=== PATIENT | female | born 1940 | race Caucasian/White ===

== ENCOUNTER 2021-12-16 20:56 | Inpatient (IN) | payer MEDICARE, MEDICAID ==
[~2021-12-16] VITALS: Ht 162.6 cm; Wt 74.8 kg
[2021-12-16] MEDS ORDERED: ALBUTEROL (0.083%) 2.5MG/3ML NEB HHN STA (22:13)
[2021-12-16 23:15] LABS: BG BASE EXCESS -1.7 mmol/L (-2.0-2.0); BG CARBOXYHEMOGLOBIN 0.9 % (0.5-1.5); BG DEOXYHEMOGLOBIN 1.6 % (0.0-5.0); BG FRACTION INSPIRED OXYGEN 28; BG HCO3 ACT 22.5 mmol/L (22.0-26.0); BG METHEMOGLOBIN 0.5 % (0.0-1.5); BG OXYGEN SATURATION 98.4 % (92.0-98.5); BG PCO2 36.5 mmHg (35.0-45.0); BG PH 7.407 (7.350-7.450); BG PO2 102.6 mmHg (75.0-100.0); BG SAMPLE SITE RIGHT RADIAL; BG TOTAL HEMOGLOBIN 14.4 g/dL (12.0-18.0); BG VENT MODE NASAL CANNULA
[2021-12-16 23:46] LABS: HEMATOCRIT. 29.9 % (36.0-48.0); HEMOGLOBIN. 10.3 g/dL (12.0-16.0); MEAN CORPUSCULAR HEMOGLOBIN 30.9 pg (28.0-32.0); MEAN CORPUSCULAR VOLUME 89.8 fL (81.0-99.0); MEAN PLATELET VOLUME 7.5 fl (7.4-10.4); PLATELET 223 x1000/uL (130-400); RED BLOOD CELL COUNT 3.33 mill/uL (4.2-5.4); RED CELL DISTRIBUTION WIDTH 13.6 % (11.6-14.6)
[2021-12-17 00:16] LABS: CHLORIDE 86 mEq/L (98-107); ETHANOL BLOOD < 10 mg/dL
[2021-12-17 00:38] LABS: *AMPHETAMINES SCREEN URINE NEGATIVE (NEGATIVE); *BARBITURATES SCREEN URINE NEGATIVE (NEGATIVE); *BENZODIAZEPINES SCREEN URINE NEGATIVE (NEGATIVE); *COCAINE SCREEN URINE NEGATIVE (NEGATIVE); CANNABINOID URINE SCREEN NEGATIVE (NEGATIVE); METHADONE URINE SCREEN NEGATIVE (NEGATIVE); OPIATES URINE SCREEN NEGATIVE (NEGATIVE); PHENCYCLIDINE URINE SCREEN NEGATIVE (NEGATIVE)
[2021-12-17] MEDS ORDERED: SODIUM CHLORIDE 0.9% 500 ML IV NR (00:45)
[2021-12-17 01:15] LABS: PLATELET ESTIMATE NORMAL
[2021-12-17] MEDS ORDERED: ACETAMINOPHEN 325MG TABLET PO PRN ×2 (09:45)
[2021-12-17] MEDS ORDERED: DOCUSATE SODIUM 100MG CAPSULE PO PRN (09:45)
[2021-12-17] MEDS ORDERED: DEXTROSE 50% WATER 50ML SYRINGE IV PRN (09:45)
[2021-12-17] MEDS ORDERED: ONDANSETRON HCL 4MG/2ML INJ IV PRN (09:45)
[2021-12-17] MEDS ORDERED: ZOLPIDEM TARTRATE 5MG TABLET PO PRN (09:45)
[2021-12-17] MEDS ORDERED: IPRATROPIUM/ALBUTEROL 0.5-3(2.5)MG/3ML NEB NEB PRN (09:45)
[2021-12-17] MEDS ORDERED: NITROGLYCERIN 0.4MG TABLET SL SL PRN (09:45)
[2021-12-17] MEDS ORDERED: GUAIFENESIN 200MG/10ML SUGAR FREE UDC PO PRN (09:45)
[2021-12-17] MEDS ORDERED: MAGNESIUM/ALUMINUM HYDROXIDE/SIMETHICONE 30ML UDC PO PRN (09:45)
[2021-12-17 10:37] LABS: T4 FREE 0.58 ng/dL (0.76-1.46)
[2021-12-17 10:58] VITALS: BP 117/89
[2021-12-17 11:36] VITALS: BP 117/89
[2021-12-17] MEDS: BLOOD SUGAR DIAGNOSTIC STRIP TEST SCH ×3 (12:08→21:00)
[2021-12-17] MEDS: ENOXAPARIN 30MG/0.3ML SYR SUBCUT SCH (12:08)
[2021-12-17] MEDS: INSULIN LISPRO 100 UNITS/ML SUBCUT SCH ×3 (12:08→20:42)
[2021-12-17] MEDS ORDERED: OLAN2.5T3 PO (12:29)
[2021-12-17] MEDS ORDERED: CLON0.5T PO (12:32)
[2021-12-17] MEDS ORDERED: ESCI10TA PO (12:32)
[2021-12-17] MEDS ORDERED: KEPP500 PO (12:32)
[2021-12-17] MEDS ORDERED: DOCU-138 PO (12:32)
[2021-12-17] MEDS ORDERED: ATOR20TA PO (12:32)
[2021-12-17] MEDS ORDERED: TOP100 PO (12:32)
[2021-12-17] MEDS ORDERED: OXCA600T5 PO (12:32)
[2021-12-17] MEDS ORDERED: VANCOMYCIN 1.25GM PMX (XELLIA) 250 ML IV NR (15:00)
[2021-12-17] MEDS: SODIUM CHLORIDE 0.9% 1,000 ML IV SCH (15:30)
[2021-12-17] MEDS: MEROPENEM 500 MG in SODIUM CHLORIDE 0.9% 50 ML IV SCH (15:30)
[2021-12-17 16:00] VITALS: BP 132/61
[2021-12-17 16:12] LABS: CLARITY URINE TURBID (CLEAR); COLOR URINE DARK YELLOW (YELLOW); KETONES URINE NEGATIVE (NEGATIVE); LEUKOCYTE ESTERASE URINE 2+ (NEGATIVE); NITRITE URINE NEGATIVE (NEGATIVE); OCCULT BLOOD URINE 2+ (NEGATIVE); PH URINE 5.5 (4.5-8.0); PROTEIN URINE 2+ (NEGATIVE); SPECIFIC GRAVITY URINE 1.017 (1.005-1.030); UROBILINOGEN URINE 0.2 E.U./dL (0.2-1.0)
[2021-12-17 16:27] LABS: SODIUM URINE RANDOM 12 mEq/L
[2021-12-17 18:17] LABS: CREATINE KINASE 30 IU/L (26-192); CREATINE KINASE MB FRACTION < 1.0 ng/mL (0.5-3.6)
[2021-12-17 20:00] VITALS: BP 144/53
[2021-12-17] MEDS: FAMOTIDINE 20MG TABLET PO SCH (21:08)
[2021-12-17] MEDS: ASCORBIC ACID 500 MG TABLET PO SCH (21:08)
[2021-12-18 00:03] VITALS: BP 101/52
[2021-12-18 04:20] LABS: CREATINE KINASE 30 IU/L (26-192); CREATINE KINASE MB FRACTION < 1.0 ng/mL (0.5-3.6)
[2021-12-18] MEDS: BLOOD SUGAR DIAGNOSTIC STRIP TEST SCH ×4 (05:04→20:48)
[2021-12-18] MEDS: INSULIN LISPRO 100 UNITS/ML SUBCUT SCH ×4 (07:33→20:59)
[2021-12-18 07:36] LABS: HEMATOCRIT. 26.4 % (36.0-48.0); HEMOGLOBIN. 9.2 g/dL (12.0-16.0); MEAN CORPUSCULAR HEMOGLOBIN 31.5 pg (28.0-32.0); MEAN CORPUSCULAR VOLUME 90.2 fL (81.0-99.0); MEAN PLATELET VOLUME 8.2 fl (7.4-10.4); PLATELET 158 x1000/uL (130-400); RED BLOOD CELL COUNT 2.93 mill/uL (4.2-5.4); RED CELL DISTRIBUTION WIDTH 13.5 % (11.6-14.6)
[2021-12-18 08:00] VITALS: BP 97/43
[2021-12-18 08:27] LABS: CHLORIDE 89 mEq/L (98-107)
[2021-12-18] MEDS: CHOLECALCIFEROL (D3) 1000 UNIT TABLET PO SCH (08:28)
[2021-12-18] MEDS: ASPIRIN 81MG EC TABLET PO SCH (08:29)
[2021-12-18] MEDS: ZINC SULFATE 220 MG ( 50 ) CAPSULE PO SCH (08:29)
[2021-12-18] MEDS: ASCORBIC ACID 500 MG TABLET PO SCH ×2 (08:32→21:36)
[2021-12-18 08:42] LABS: PHOSPHORUS 3.5 mg/dL (2.5-4.9)
[2021-12-18 12:00] VITALS: BP 127/50
[2021-12-18] MEDS: ENOXAPARIN 30MG/0.3ML SYR SUBCUT SCH (12:16)
[2021-12-18] MEDS: SODIUM CHLORIDE 0.9% 1,000 ML IV SCH (12:16)
[2021-12-18 13:33] LABS: PLATELET ESTIMATE NORMAL
[2021-12-18] MEDS: MEROPENEM 500 MG in SODIUM CHLORIDE 0.9% 50 ML IV SCH (14:18)
[2021-12-18 16:00] VITALS: BP 111/82
[2021-12-18 20:00] VITALS: BP 134/44
[2021-12-18] MEDS: FAMOTIDINE 20MG TABLET PO SCH (21:36)
[2021-12-19 01:30] VITALS: BP 155/69
[2021-12-19 04:30] VITALS: BP 156/55
[2021-12-19] MEDS: BLOOD SUGAR DIAGNOSTIC STRIP TEST SCH ×4 (05:25→20:27)
[2021-12-19] MEDS: INSULIN LISPRO 100 UNITS/ML SUBCUT SCH ×4 (05:51→20:27)
[2021-12-19] MEDS: SODIUM CHLORIDE 0.9% 1,000 ML IV SCH ×2 (06:02→23:14)
[2021-12-19] MEDS: ASCORBIC ACID 500 MG TABLET PO SCH ×2 (08:21→20:58)
[2021-12-19] MEDS: ZINC SULFATE 220 MG ( 50 ) CAPSULE PO SCH (08:21)
[2021-12-19] MEDS: CHOLECALCIFEROL (D3) 1000 UNIT TABLET PO SCH (08:22)
[2021-12-19 08:23] VITALS: BP 115/67
[2021-12-19] MEDS: ASPIRIN 81MG EC TABLET PO SCH (08:23)
[2021-12-19 12:00] VITALS: BP 152/68
[2021-12-19] MEDS: ENOXAPARIN 30MG/0.3ML SYR SUBCUT SCH (12:29)
[2021-12-19 12:54] LABS: HEMATOCRIT. 27.9 % (36.0-48.0); HEMOGLOBIN. 9.7 g/dL (12.0-16.0); MEAN CORPUSCULAR HEMOGLOBIN 31.2 pg (28.0-32.0); MEAN CORPUSCULAR VOLUME 89.6 fL (81.0-99.0); MEAN PLATELET VOLUME 8.1 fl (7.4-10.4); PLATELET 194 x1000/uL (130-400); RED BLOOD CELL COUNT 3.12 mill/uL (4.2-5.4); RED CELL DISTRIBUTION WIDTH 13.8 % (11.6-14.6)
[2021-12-19 13:42] LABS: PLATELET ESTIMATE NORMAL
[2021-12-19] MEDS: MEROPENEM 500 MG in SODIUM CHLORIDE 0.9% 50 ML IV SCH (14:20)
[2021-12-19 16:00] VITALS: BP 156/71
[2021-12-19 20:00] VITALS: BP 160/61
[2021-12-19] MEDS: FAMOTIDINE 20MG TABLET PO SCH (20:59)
[2021-12-19] MEDS ORDERED: VANCOMYCIN 500MG PREMIX 100 ML IV SCH (21:00)
[2021-12-20] VITALS: BP 117/62
[2021-12-20 03:55] VITALS: BP 154/53
[2021-12-20] MEDS: INSULIN LISPRO 100 UNITS/ML SUBCUT SCH ×4 (06:18→20:09)
[2021-12-20] MEDS: BLOOD SUGAR DIAGNOSTIC STRIP TEST SCH ×4 (06:18→20:09)
[2021-12-20 08:00] VITALS: BP 155/70
[2021-12-20] MEDS: CHOLECALCIFEROL (D3) 1000 UNIT TABLET PO SCH (08:50)
[2021-12-20] MEDS: ASPIRIN 81MG EC TABLET PO SCH (08:50)
[2021-12-20] MEDS: ASCORBIC ACID 500 MG TABLET PO SCH ×2 (08:50→21:10)
[2021-12-20] MEDS: ZINC SULFATE 220 MG ( 50 ) CAPSULE PO SCH (08:50)
[2021-12-20 10:18] LABS: HEMATOCRIT. 27.8 % (36.0-48.0); HEMOGLOBIN. 9.6 g/dL (12.0-16.0); MEAN CORPUSCULAR HEMOGLOBIN 30.7 pg (28.0-32.0); MEAN CORPUSCULAR VOLUME 89.1 fL (81.0-99.0); MEAN PLATELET VOLUME 8.2 fl (7.4-10.4); PLATELET 213 x1000/uL (130-400); RED BLOOD CELL COUNT 3.12 mill/uL (4.2-5.4); RED CELL DISTRIBUTION WIDTH 13.9 % (11.6-14.6)
[2021-12-20 12:07] VITALS: BP 167/56
[2021-12-20] MEDS: ENOXAPARIN 30MG/0.3ML SYR SUBCUT SCH (13:52)
[2021-12-20] MEDS: MEROPENEM 500 MG in SODIUM CHLORIDE 0.9% 50 ML IV SCH (13:54)
[2021-12-20] MEDS: SODIUM CHLORIDE 0.9% 1,000 ML IV SCH (13:54)
[2021-12-20 14:34] LABS: PLATELET ESTIMATE NORMAL
[2021-12-20 16:14] VITALS: BP 168/68
[2021-12-20] MEDS ORDERED: SODIUM POLYSTYRENE SULFONATE 15 G/60 ML BOT PO NR (18:45)
[2021-12-20 20:00] VITALS: BP 158/75
[2021-12-20] MEDS ORDERED: SODIUM BICARBONATE 8.4% 1 MEQ/ML 50ML SYR IV NR (21:00)
[2021-12-20] MEDS: FAMOTIDINE 20MG TABLET PO SCH (21:10)
[2021-12-21] VITALS: BP 156/65
[2021-12-21] MEDS: SODIUM CHLORIDE 0.9% 1,000 ML IV SCH ×2 (01:59→16:39)
[2021-12-21 04:00] VITALS: BP 143/53
[2021-12-21 05:32] LABS: BASOPHILS % 0.8 % (0.0-2.0); EOSINOPHILS % 3.8 % (0.0-5.0); HEMATOCRIT. 28.1 % (36.0-48.0); HEMOGLOBIN. 9.3 g/dL (12.0-16.0); LYMPHOCYTES % 8.2 % (20.0-50.0); MEAN CORPUSCULAR HEMOGLOBIN 29.8 pg (28.0-32.0); MEAN CORPUSCULAR VOLUME 89.9 fL (81.0-99.0); MEAN PLATELET VOLUME 7.9 fl (7.4-10.4); MONOCYTES % 14.3 % (2.0-8.0); NEUTROPHILS % 72.9 % (40.0-76.0); PLATELET 274 x1000/uL (130-400); RED BLOOD CELL COUNT 3.13 mill/uL (4.2-5.4); RED CELL DISTRIBUTION WIDTH 13.9 % (11.6-14.6)
[2021-12-21 06:09] LABS: PHOSPHORUS 5.6 mg/dL (2.5-4.9)
[2021-12-21] MEDS: INSULIN LISPRO 100 UNITS/ML SUBCUT SCH ×4 (06:19→20:08)
[2021-12-21] MEDS: BLOOD SUGAR DIAGNOSTIC STRIP TEST SCH ×4 (06:19→20:04)
[2021-12-21 08:00] VITALS: BP 138/58
[2021-12-21] MEDS ORDERED: CITRIC ACID/SODIUM CITRATE SOLN 30ML UDC PO SCH (09:00)
[2021-12-21] MEDS ORDERED: FUROSEMIDE 40MG/4ML VIAL IVP SCH (09:45)
[2021-12-21] MEDS: ZINC SULFATE 220 MG ( 50 ) CAPSULE PO SCH (09:58)
[2021-12-21] MEDS: ASCORBIC ACID 500 MG TABLET PO SCH ×2 (09:58→20:10)
[2021-12-21] MEDS: ASPIRIN 81MG EC TABLET PO SCH (09:58)
[2021-12-21] MEDS: CHOLECALCIFEROL (D3) 1000 UNIT TABLET PO SCH (09:58)
[2021-12-21] MEDS: CITRIC ACID/SODIUM CITRATE SOLN 30ML UDC PO SCH ×3 (10:05→17:00)
[2021-12-21 10:34] LABS: PROTHROMBIN TIME 10.8 sec (9.6-11.0)
[2021-12-21] MEDS: ENOXAPARIN 30MG/0.3ML SYR SUBCUT SCH (11:00)
[2021-12-21] MEDS ORDERED: MANNITOL 12.5G (25%) VIAL 50ML IV SCH (11:00)
[2021-12-21 12:00] VITALS: BP 127/73
[2021-12-21 12:37] LABS: HEPATITIS B SURFACE ANTIGEN NEGATIVE
[2021-12-21] MEDS: MEROPENEM 500 MG in SODIUM CHLORIDE 0.9% 50 ML IV SCH (13:17)
[2021-12-21 16:00] VITALS: BP 149/58
[2021-12-21 20:00] VITALS: BP 105/73
[2021-12-21] MEDS: FAMOTIDINE 20MG TABLET PO SCH (20:10)
[2021-12-22] VITALS: BP 149/51
[2021-12-22 04:00] VITALS: BP 139/77
[2021-12-22] MEDS: BLOOD SUGAR DIAGNOSTIC STRIP TEST SCH ×4 (04:58→20:45)
[2021-12-22] MEDS: INSULIN LISPRO 100 UNITS/ML SUBCUT SCH ×4 (05:22→20:45)
[2021-12-22] MEDS: SODIUM CHLORIDE 0.9% 1,000 ML IV SCH (05:32)
[2021-12-22 08:00] VITALS: BP 145/78
[2021-12-22] MEDS: CHOLECALCIFEROL (D3) 1000 UNIT TABLET PO SCH (08:51)
[2021-12-22] MEDS: ASCORBIC ACID 500 MG TABLET PO SCH ×2 (08:51→20:45)
[2021-12-22] MEDS: ASPIRIN 81MG EC TABLET PO SCH (08:51)
[2021-12-22] MEDS: ZINC SULFATE 220 MG ( 50 ) CAPSULE PO SCH (08:51)
[2021-12-22 10:07] LABS: HEMATOCRIT. 25.5 % (36.0-48.0); HEMOGLOBIN. 8.7 g/dL (12.0-16.0); MEAN CORPUSCULAR HEMOGLOBIN 30.5 pg (28.0-32.0); MEAN PLATELET VOLUME 7.7 fl (7.4-10.4); PLATELET 348 x1000/uL (130-400); RED BLOOD CELL COUNT 2.86 mill/uL (4.2-5.4); RED CELL DISTRIBUTION WIDTH 13.9 % (11.6-14.6)
[2021-12-22 10:56] LABS: PLATELET ESTIMATE NORMAL
[2021-12-22] MEDS: ENOXAPARIN 30MG/0.3ML SYR SUBCUT SCH (11:55)
[2021-12-22 12:00] VITALS: BP 140/72
[2021-12-22] MEDS: MEROPENEM 500 MG in SODIUM CHLORIDE 0.9% 50 ML IV SCH (14:40)
[2021-12-22 16:00] VITALS: BP 155/56
[2021-12-22] MEDS: CLONIDINE 0.1MG TABLET PO PRN (19:03)
[2021-12-22 20:00] VITALS: BP 152/58
[2021-12-22] MEDS: FAMOTIDINE 20MG TABLET PO SCH (20:45)
[2021-12-22] MEDS ORDERED: VANCOMYCIN 500MG PREMIX 100 ML IV NR (21:00)
[2021-12-23] VITALS: BP 106/52
[2021-12-23 04:00] VITALS: BP 98/57
[2021-12-23] MEDS: BLOOD SUGAR DIAGNOSTIC STRIP TEST SCH ×3 (05:16→21:24)
[2021-12-23] MEDS: INSULIN LISPRO 100 UNITS/ML SUBCUT SCH ×3 (05:17→21:00)
[2021-12-23 08:00] VITALS: BP 141/74
[2021-12-23 09:46] LABS: HEMATOCRIT. 25.2 % (36.0-48.0); HEMOGLOBIN. 8.4 g/dL (12.0-16.0); MEAN CORPUSCULAR HEMOGLOBIN 29.6 pg (28.0-32.0); MEAN CORPUSCULAR VOLUME 89.1 fL (81.0-99.0); MEAN PLATELET VOLUME 8.1 fl (7.4-10.4); PLATELET 239 x1000/uL (130-400); RED BLOOD CELL COUNT 2.83 mill/uL (4.2-5.4)
[2021-12-23] MEDS: ASCORBIC ACID 500 MG TABLET PO SCH ×2 (10:22→21:13)
[2021-12-23] MEDS: ASPIRIN 81MG EC TABLET PO SCH (10:22)
[2021-12-23] MEDS: ZINC SULFATE 220 MG ( 50 ) CAPSULE PO SCH (10:22)
[2021-12-23] MEDS: CHOLECALCIFEROL (D3) 1000 UNIT TABLET PO SCH (10:23)
[2021-12-23] MEDS: ENOXAPARIN 30MG/0.3ML SYR SUBCUT SCH (10:23)
[2021-12-23] MEDS ORDERED: HALOPERIDOL LACTATE 5MG/ML VIAL IM PRN (11:30)
[2021-12-23 12:00] VITALS: BP 113/77
[2021-12-23 12:25] LABS: PLATELET ESTIMATE NORMAL
[2021-12-23 16:00] VITALS: BP 146/51
[2021-12-23 20:00] VITALS: BP 141/78
[2021-12-23] MEDS: FAMOTIDINE 20MG TABLET PO SCH (21:13)
[2021-12-24] VITALS: BP 149/77
[2021-12-24 04:00] VITALS: BP 137/78
[2021-12-24] MEDS: BLOOD SUGAR DIAGNOSTIC STRIP TEST SCH ×4 (05:13→21:00)
[2021-12-24] MEDS: INSULIN LISPRO 100 UNITS/ML SUBCUT SCH ×4 (05:13→21:00)
[2021-12-24 08:00] VITALS: BP 133/64
[2021-12-24] MEDS: ZINC SULFATE 220 MG ( 50 ) CAPSULE PO SCH (09:06)
[2021-12-24] MEDS: CHOLECALCIFEROL (D3) 1000 UNIT TABLET PO SCH (09:06)
[2021-12-24] MEDS: ASCORBIC ACID 500 MG TABLET PO SCH ×2 (09:06→22:13)
[2021-12-24] MEDS: ASPIRIN 81MG EC TABLET PO SCH (09:07)
[2021-12-24] MEDS: ENOXAPARIN 30MG/0.3ML SYR SUBCUT SCH (11:54)
[2021-12-24] MEDS: CLONIDINE 0.1MG TABLET PO PRN (11:54)
[2021-12-24 12:00] VITALS: BP 169/54
[2021-12-24 16:00] VITALS: BP 146/62
[2021-12-24 20:00] VITALS: BP 149/95
[2021-12-24] MEDS: FAMOTIDINE 20MG TABLET PO SCH (22:13)
[2021-12-25] VITALS (7 sets, daily range): BP systolic 102–169; BP diastolic 63–83
[2021-12-25] MEDS: INSULIN LISPRO 100 UNITS/ML SUBCUT SCH ×2 (05:12→19:47)
[2021-12-25] MEDS: BLOOD SUGAR DIAGNOSTIC STRIP TEST SCH ×2 (05:12→19:47)
[2021-12-25] MEDS: ZINC SULFATE 220 MG ( 50 ) CAPSULE PO SCH (10:12)
[2021-12-25] MEDS: ENOXAPARIN 30MG/0.3ML SYR SUBCUT SCH (10:12)
[2021-12-25] MEDS: ASPIRIN 81MG EC TABLET PO SCH (10:12)
[2021-12-25] MEDS: CHOLECALCIFEROL (D3) 1000 UNIT TABLET PO SCH (10:12)
[2021-12-25] MEDS: ASCORBIC ACID 500 MG TABLET PO SCH ×2 (10:12→20:17)
[2021-12-25 11:27] LABS: HEMATOCRIT. 25.1 % (36.0-48.0); HEMOGLOBIN. 8.3 g/dL (12.0-16.0); MEAN CORPUSCULAR HEMOGLOBIN 29.6 pg (28.0-32.0); MEAN CORPUSCULAR VOLUME 89.1 fL (81.0-99.0); MEAN PLATELET VOLUME 7.4 fl (7.4-10.4); PLATELET 562 x1000/uL (130-400); RED BLOOD CELL COUNT 2.81 mill/uL (4.2-5.4); RED CELL DISTRIBUTION WIDTH 14.1 % (11.6-14.6)
[2021-12-25] MEDS: CLONIDINE 0.1MG TABLET PO PRN ×2 (11:28→20:24)
[2021-12-25 17:54] LABS: PLATELET ESTIMATE MARKEDLY INCREASED
[2021-12-25] MEDS ORDERED: VANCOMYCIN 500MG PREMIX 100 ML IV NR (18:00)
[2021-12-25] MEDS: FAMOTIDINE 20MG TABLET PO SCH (20:17)
[2021-12-26] VITALS: BP 130/60
== END 2021-12-26 00:35 | DRG 871 ==
LOC: ER 20:56 → 8WST 12-17 03:29
PROVIDERS: ADMIT Internal Medicine; ATTEND Internal Medicine
PROC: 02HV33Z Insertion of Infusion Device into Superior Vena Cava, Percutaneous Approach (ICD-10-PCS; principal; 2021-12-21)
PROC: B5181ZA Fluoroscopy of Superior Vena Cava using Low Osmolar Contrast, Guidance (ICD-10-PCS; 2021-12-21)
PROC: B548ZZA Ultrasonography of Superior Vena Cava, Guidance (ICD-10-PCS; 2021-12-21)
PROC: 5A1D70Z Performance of Urinary Filtration, Intermittent, Less than 6 Hours Per Day (ICD-10-PCS; 2021-12-21)
PROC: 5A1D70Z Performance of Urinary Filtration, Intermittent, Less than 6 Hours Per Day (ICD-10-PCS; 2021-12-23)
PROC: 5A1D70Z Performance of Urinary Filtration, Intermittent, Less than 6 Hours Per Day (ICD-10-PCS; 2021-12-25)
DX: A41.9 Sepsis, unspecified organism (principal); E43 Unspecified severe protein-calorie malnutrition; J18.9 Pneumonia, unspecified organism; G92.8 Other toxic encephalopathy; E87.1 Hypo-osmolality and hyponatremia; J44.0 Chronic obstructive pulmonary disease with (acute) lower respiratory infection; I13.0 Hypertensive heart and chronic kidney disease with heart failure and stage 1 through stage 4 chronic kidney disease, or unspecified chronic kidney disease; N17.9 Acute kidney failure, unspecified; R65.20 Severe sepsis without septic shock; Z20.822 Contact with and (suspected) exposure to COVID-19; D63.8 Anemia in other chronic diseases classified elsewhere; G40.909 Epilepsy, unspecified, not intractable, without status epilepticus; J44.9 Chronic obstructive pulmonary disease, unspecified; R62.7 Adult failure to thrive; E78.00 Pure hypercholesterolemia, unspecified; I50.9 Heart failure, unspecified; R73.03 Prediabetes; R74.01 Elevation of levels of liver transaminase levels; N18.9 Chronic kidney disease, unspecified; F20.9 Schizophrenia, unspecified; E86.9 Volume depletion, unspecified; Z93.1 Gastrostomy status; Z68.28 Body mass index [BMI] 28.0-28.9, adult
CPT/HCPCS: 36415; 36556; 36600; 71045; 76770; 76937; 77001; 80048; 80053; 80061; 80202; 80305; 80320; 81003; 82375; 82533; 82550; 82553; 82607; 82746; 82805; 82962; 83036; 83540; 83550; 83605; 83735; 83880; 83930; 83935; 84100; 84145; 84295; 84300; 84439; 84443; 84484; 85025; 86705; 86706; 86709; 86803; 87077; 87186; 87340; 87426; 87804; 93306; 93970; 94640; 94664; 99285; A6261; C1752; C1893; C9803; J1630; J1650; J1940; J2150; J2185; J3370; J3490; J7030; U0003; U0005; A4315; G0480

== ENCOUNTER 2021-12-28 17:24 | Inpatient (IN) | payer MEDICARE, MEDICAID ==
[~2021-12-28] VITALS: Ht 165.1 cm; Wt 69.4 kg
[~2021-12-28 17:24] MED LIST: ATOR20TA PO; CLON0.5T PO; DOCU-138 PO; ESCI10TA PO; KEPP500 PO; OLAN2.5T3 PO; OXCA600T5 PO; TOP100 PO
[2021-12-28 19:51] LABS: BASOPHILS % 1.1 % (0.0-2.0); EOSINOPHILS % 4.7 % (0.0-5.0); HEMOGLOBIN. 8.7 g/dL (12.0-16.0); LYMPHOCYTES % 14.3 % (20.0-50.0); MEAN CORPUSCULAR HEMOGLOBIN 30.4 pg (28.0-32.0); MEAN CORPUSCULAR VOLUME 91.2 fL (81.0-99.0); MEAN PLATELET VOLUME 7.1 fl (7.4-10.4); NEUTROPHILS % 72.9 % (40.0-76.0); PLATELET 614 x1000/uL (130-400); RED BLOOD CELL COUNT 2.85 mill/uL (4.2-5.4); RED CELL DISTRIBUTION WIDTH 14.2 % (11.6-14.6)
[2021-12-28 19:57] LABS: INR 1.1; PROTHROMBIN TIME 11.3 sec (9.6-11.0)
[2021-12-28 20:51] LABS: CHLORIDE 106 mEq/L (98-107)
[2021-12-28] MEDS ORDERED: POTASSIUM CHLORIDE 20MEQ/PACKET GT ONE (21:00)
[2021-12-28] MEDS ORDERED: POTASSIUM CHLORIDE 20MEQ/PACKET GT NR (22:15)
[2021-12-28] MEDS ORDERED: ONDANSETRON HCL 4MG/2ML INJ IV PRN (22:30)
[2021-12-28] MEDS ORDERED: GUAIFENESIN 200MG/10ML SUGAR FREE UDC PO PRN (22:30)
[2021-12-28] MEDS ORDERED: MAGNESIUM/ALUMINUM HYDROXIDE/SIMETHICONE 30ML UDC PO PRN (22:30)
[2021-12-28] MEDS ORDERED: IPRATROPIUM/ALBUTEROL 0.5-3(2.5)MG/3ML NEB HHN PRN (22:30)
[2021-12-28] MEDS ORDERED: DOCUSATE SODIUM 100MG CAPSULE PO PRN (22:30)
[2021-12-28] MEDS ORDERED: ACETAMINOPHEN 650MG/20.3ML UDC GT PRN ×2 (22:30)
[2021-12-28] MEDS: CLONIDINE 0.1MG TABLET PO PRN (22:54)
[2021-12-28 23:11] LABS: PHOSPHORUS 5.8 mg/dL (2.5-4.9)
[2021-12-29 01:11] VITALS: BP 131/58
[2021-12-29 02:26] VITALS: BP 134/60
[2021-12-29 08:00] VITALS: BP 147/97
[2021-12-29] MEDS: PANTOPRAZOLE SODIUM 40 MG/VIAL IV SCH (09:24)
[2021-12-29] MEDS: OLANZAPINE 2.5MG TABLET PO SCH (09:24)
[2021-12-29] MEDS: TOPIRAMATE 100MG TABLET PO SCH (09:24)
[2021-12-29] MEDS: LEVETIRACETAM 500MG TABLET PO SCH (09:24)
[2021-12-29] MEDS: OXCARBAZEPINE 300MG TABLET PO SCH (09:25)
[2021-12-29] MEDS: ENOXAPARIN 30MG/0.3ML SYR SUBCUT SCH (09:26)
[2021-12-29 12:00] VITALS: BP 122/56
[2021-12-29 16:00] VITALS: BP 139/60
[2021-12-29] MEDS ORDERED: DEXTROSE 50% WATER 50ML SYRINGE IV PRN (17:00)
[2021-12-29] MEDS: BLOOD SUGAR DIAGNOSTIC STRIP TEST SCH ×2 (17:20→21:37)
[2021-12-29] MEDS: INSULIN LISPRO 100 UNITS/ML SUBCUT SCH ×2 (17:21→21:00)
[2021-12-29 20:00] VITALS: BP 133/59
[2021-12-29 21:19] LABS: BASOPHILS % 1.5 % (0.0-2.0); EOSINOPHILS % 4.6 % (0.0-5.0); HEMATOCRIT. 27.6 % (36.0-48.0); HEMOGLOBIN. 9.3 g/dL (12.0-16.0); LYMPHOCYTES % 14.8 % (20.0-50.0); MEAN CORPUSCULAR HEMOGLOBIN 31.1 pg (28.0-32.0); MEAN CORPUSCULAR VOLUME 92.6 fL (81.0-99.0); MEAN PLATELET VOLUME 7.7 fl (7.4-10.4); MONOCYTES % 8.8 % (2.0-8.0); NEUTROPHILS % 70.3 % (40.0-76.0); PLATELET 577 x1000/uL (130-400); RED BLOOD CELL COUNT 2.99 mill/uL (4.2-5.4); RED CELL DISTRIBUTION WIDTH 14.5 % (11.6-14.6)
[2021-12-29 21:29] LABS: CHLORIDE 104 mEq/L (98-107)
[2021-12-30] VITALS: BP 147/49
[2021-12-30 04:00] VITALS: BP 138/63
[2021-12-30] MEDS: INSULIN LISPRO 100 UNITS/ML SUBCUT SCH ×4 (05:28→20:17)
[2021-12-30] MEDS: BLOOD SUGAR DIAGNOSTIC STRIP TEST SCH ×4 (05:28→20:16)
[2021-12-30 07:56] LABS: HEMATOCRIT 26.3 % (36.0-48.0); HEMOGLOBIN 8.6 g/dL (12.0-16.0); MEAN CORPUSCULAR HEMOGLOBIN 29.8 pg (28.0-32.0); PLATELET 550 x1000/uL (130-400); RED CELL DISTRIBUTION WIDTH 14.7 % (11.6-14.6)
[2021-12-30 08:00] VITALS: BP 166/69
[2021-12-30] MEDS: LEVETIRACETAM 500MG TABLET PO SCH (10:01)
[2021-12-30] MEDS: CLONIDINE 0.1MG TABLET PO PRN (10:01)
[2021-12-30] MEDS: OLANZAPINE 2.5MG TABLET PO SCH (10:02)
[2021-12-30] MEDS: PANTOPRAZOLE SODIUM 40 MG/VIAL IV SCH (10:02)
[2021-12-30] MEDS: TOPIRAMATE 100MG TABLET PO SCH (10:02)
[2021-12-30] MEDS: OXCARBAZEPINE 300MG TABLET PO SCH (10:02)
[2021-12-30] MEDS: ENOXAPARIN 30MG/0.3ML SYR SUBCUT SCH (10:03)
[2021-12-30 11:30] VITALS: BP 118/54
[2021-12-30 15:37] VITALS: BP 107/50
[2021-12-30] MEDS ORDERED: ZOLPIDEM TARTRATE 5MG TABLET PO PRN (19:45)
[2021-12-30 20:00] VITALS: BP 154/64
[2021-12-31] VITALS: BP 159/70
[2021-12-31 04:00] VITALS: BP 162/70
[2021-12-31] MEDS: BLOOD SUGAR DIAGNOSTIC STRIP TEST SCH (05:34)
[2021-12-31] MEDS: INSULIN LISPRO 100 UNITS/ML SUBCUT SCH (05:35)
[2021-12-31] MEDS: CLONIDINE 0.1MG TABLET PO PRN (06:06)
[2021-12-31 07:36] LABS: MEAN CORPUSCULAR HEMOGLOBIN 31.6 pg (28.0-32.0); MEAN CORPUSCULAR VOLUME 91.5 fL (81.0-99.0); PLATELET 518 x1000/uL (130-400); RED BLOOD CELL COUNT 2.84 mill/uL (4.2-5.4); RED CELL DISTRIBUTION WIDTH 14.5 % (11.6-14.6)
[2021-12-31 08:00] VITALS: BP 125/40
[2021-12-31] MEDS: OLANZAPINE 2.5MG TABLET PO SCH (08:56)
[2021-12-31] MEDS: PANTOPRAZOLE SODIUM 40 MG/VIAL IV SCH (08:56)
[2021-12-31] MEDS: TOPIRAMATE 100MG TABLET PO SCH (08:57)
[2021-12-31] MEDS: ENOXAPARIN 30MG/0.3ML SYR SUBCUT SCH (08:57)
[2021-12-31] MEDS: LEVETIRACETAM 500MG TABLET PO SCH (08:57)
[2021-12-31] MEDS: OXCARBAZEPINE 300MG TABLET PO SCH (08:57)
[2021-12-31 09:07] LABS: HBSAG SCREEN Negative (Negative)
[2021-12-31 09:56] VITALS: BP 125/40
[2021-12-31] MEDS ORDERED: SODIUM POLYSTYRENE SULFONATE 15 G/60 ML BOT PO NR (10:45)
== END 2021-12-31 12:00 | DRG 291 ==
LOC: ER 17:24 → 8WST 20:17 → EDBEDREQTM 20:22 → EDBEDREQ 20:22 → ENRESERV 22:31
PROVIDERS: ADMIT Hospitalist; ATTEND Hospitalist
PROC: 5A1D70Z Performance of Urinary Filtration, Intermittent, Less than 6 Hours Per Day (ICD-10-PCS; principal; 2021-12-29)
PROC: 5A1D70Z Performance of Urinary Filtration, Intermittent, Less than 6 Hours Per Day (ICD-10-PCS; 2021-12-31)
DX: I13.2 Hypertensive heart and chronic kidney disease with heart failure and with stage 5 chronic kidney disease, or end stage renal disease (principal); N18.6 End stage renal disease; R47.01 Aphasia; I31.39 Other pericardial effusion (noninflammatory); I50.32 Chronic diastolic (congestive) heart failure; G40.909 Epilepsy, unspecified, not intractable, without status epilepticus; E83.39 Other disorders of phosphorus metabolism; E87.6 Hypokalemia; D63.8 Anemia in other chronic diseases classified elsewhere; D75.839 Thrombocytosis, unspecified; I08.1 Rheumatic disorders of both mitral and tricuspid valves; E11.22 Type 2 diabetes mellitus with diabetic chronic kidney disease; E78.00 Pure hypercholesterolemia, unspecified; D72.829 Elevated white blood cell count, unspecified; J44.9 Chronic obstructive pulmonary disease, unspecified; F20.9 Schizophrenia, unspecified; Z99.2 Dependence on renal dialysis; Z93.1 Gastrostomy status
CPT/HCPCS: 36415; 80048; 80053; 82962; 83036; 83735; 84100; 84132; 85025; 85027; 85379; 86705; 86709; 86803; 86850; 86900; 87340; 93005; 93970; 99285; C9113; J1650

== ENCOUNTER 2022-01-06 17:50 | Inpatient (IN) | payer MEDICARE, MEDICAID ==
[~2022-01-06] VITALS: Ht 162.6 cm; Wt 66.2 kg
[2022-01-06 18:45] LABS: BASOPHILS % 1.8 % (0.0-2.0); EOSINOPHILS % 5.5 % (0.0-5.0); HEMATOCRIT. 30.9 % (36.0-48.0); LYMPHOCYTES % 21.3 % (20.0-50.0); MEAN CORPUSCULAR HEMOGLOBIN 30.6 pg (28.0-32.0); MEAN CORPUSCULAR VOLUME 94.8 fL (81.0-99.0); MEAN PLATELET VOLUME 8.1 fl (7.4-10.4); MONOCYTES % 9.1 % (2.0-8.0); NEUTROPHILS % 62.3 % (40.0-76.0); PLATELET 334 x1000/uL (130-400); RED BLOOD CELL COUNT 3.26 mill/uL (4.2-5.4); RED CELL DISTRIBUTION WIDTH 14.8 % (11.6-14.6)
[2022-01-06 18:52] LABS: CHLORIDE 121 mEq/L (98-107)
[2022-01-06 18:54] LABS: PROTHROMBIN TIME 10.9 sec (9.6-11.0)
[2022-01-06] MEDS ORDERED: SODIUM CHLORIDE 0.9% 500 ML IV ONE (19:30)
[2022-01-06] MEDS ORDERED: DEXT 5% WATER 500 ML IV ONE (19:45)
[2022-01-06 20:27] LABS: CLARITY URINE CLEAR (CLEAR); COLOR URINE YELLOW (YELLOW); KETONES URINE NEGATIVE (NEGATIVE); LEUKOCYTE ESTERASE URINE 2+ (NEGATIVE); NITRITE URINE NEGATIVE (NEGATIVE); OCCULT BLOOD URINE 2+ (NEGATIVE); PH URINE 7.5 (4.5-8.0); PROTEIN URINE 3+ (NEGATIVE); SPECIFIC GRAVITY URINE 1.021 (1.005-1.030); UROBILINOGEN URINE 0.2 E.U./dL (0.2-1.0)
[2022-01-06] MEDS ORDERED: DEXTROSE 5% WATER 1,000 ML IV ONE (21:30)
[2022-01-07] VITALS (25 sets, daily range): BP systolic 89–167; BP diastolic 53–112
[2022-01-07 07:09] LABS: BASOPHILS % 1.9 % (0.0-2.0); EOSINOPHILS % 8.7 % (0.0-5.0); HEMATOCRIT. 30.2 % (36.0-48.0); HEMOGLOBIN. 9.7 g/dL (12.0-16.0); LYMPHOCYTES % 22.6 % (20.0-50.0); MEAN CORPUSCULAR HEMOGLOBIN 30.5 pg (28.0-32.0); MEAN CORPUSCULAR VOLUME 94.9 fL (81.0-99.0); MEAN PLATELET VOLUME 8.9 fl (7.4-10.4); MONOCYTES % 9.5 % (2.0-8.0); NEUTROPHILS % 57.3 % (40.0-76.0); PLATELET 302 x1000/uL (130-400); RED BLOOD CELL COUNT 3.18 mill/uL (4.2-5.4); RED CELL DISTRIBUTION WIDTH 15.1 % (11.6-14.6)
[2022-01-07] MEDS ORDERED: HYDRALAZINE 20MG/ML VIAL IV PRN (12:30)
[2022-01-07] MEDS ORDERED: CEFTRIAXONE 1 G PREMIX 50 ML IV SCH (12:30)
[2022-01-07 13:49] LABS: HEPATITIS B SURFACE ANTIGEN NEGATIVE
[2022-01-07] MEDS: CEFTRIAXONE 1,000 MG in DEXTROSE 5% WATER 50 ML IV SCH (14:48)
[2022-01-07] MEDS: LORAZEPAM 2MG/ML CPJ IV PRN ×2 (14:49→20:49)
[2022-01-08] VITALS (13 sets, daily range): BP systolic 106–147; BP diastolic 36–83
[2022-01-08] MEDS: LORAZEPAM 2MG/ML CPJ IV PRN ×2 (04:31→21:43)
[2022-01-08 11:23] LABS: HEMATOCRIT. 31.7 % (36.0-48.0); HEMOGLOBIN. 10.3 g/dL (12.0-16.0); MEAN CORPUSCULAR HEMOGLOBIN 31.3 pg (28.0-32.0); MEAN CORPUSCULAR VOLUME 96.6 fL (81.0-99.0); MEAN PLATELET VOLUME 8.7 fl (7.4-10.4); PLATELET 235 x1000/uL (130-400); RED BLOOD CELL COUNT 3.28 mill/uL (4.2-5.4); RED CELL DISTRIBUTION WIDTH 14.5 % (11.6-14.6)
[2022-01-08] MEDS: CLONAZEPAM 0.5MG TABLET PO SCH ×2 (11:30→16:52)
[2022-01-08] MEDS: FLUOXETINE HCL 10 MG CAPSULE PO SCH (12:53)
[2022-01-08] MEDS: OLANZAPINE 2.5MG TABLET PO SCH ×2 (12:53→16:52)
[2022-01-08 14:45] LABS: PLATELET ESTIMATE NORMAL
[2022-01-08] MEDS: CEFTRIAXONE 1,000 MG in DEXTROSE 5% WATER 50 ML IV SCH (16:50)
[2022-01-08] MEDS: OXCARBAZEPINE 300MG TABLET PO SCH (21:43)
[2022-01-09] VITALS (8 sets, daily range): BP systolic 118–145; BP diastolic 62–93
[2022-01-09 06:38] LABS: BASOPHILS % 1.4 % (0.0-2.0); HEMATOCRIT. 26.9 % (36.0-48.0); HEMOGLOBIN. 9.1 g/dL (12.0-16.0); MEAN CORPUSCULAR HEMOGLOBIN 31.1 pg (28.0-32.0); MEAN CORPUSCULAR VOLUME 92.4 fL (81.0-99.0); MEAN PLATELET VOLUME 9.3 fl (7.4-10.4); MONOCYTES % 7.5 % (2.0-8.0); NEUTROPHILS % 62.1 % (40.0-76.0); PLATELET 249 x1000/uL (130-400); RED BLOOD CELL COUNT 2.91 mill/uL (4.2-5.4); RED CELL DISTRIBUTION WIDTH 14.4 % (11.6-14.6)
[2022-01-09] MEDS: FLUOXETINE HCL 10 MG CAPSULE PO SCH (08:27)
[2022-01-09] MEDS: CLONAZEPAM 0.5MG TABLET PO SCH ×2 (08:27→17:25)
[2022-01-09] MEDS: OLANZAPINE 2.5MG TABLET PO SCH (08:27)
[2022-01-09] MEDS: OXCARBAZEPINE 300MG TABLET PO SCH ×2 (08:27→21:50)
[2022-01-09] MEDS: LORAZEPAM 2MG/ML CPJ IV PRN (14:43)
[2022-01-09] MEDS: CEFTRIAXONE 1,000 MG in DEXTROSE 5% WATER 50 ML IV SCH (14:43)
[2022-01-09] MEDS: OLANZAPINE 5MG TABLET PO SCH (17:25)
[2022-01-10] VITALS (11 sets, daily range): BP systolic 102–145; BP diastolic 53–80
[2022-01-10] MEDS: LORAZEPAM 2MG/ML CPJ IV PRN (00:31)
[2022-01-10] MEDS: CLONAZEPAM 0.5MG TABLET PO SCH ×2 (08:29→17:56)
[2022-01-10] MEDS: OXCARBAZEPINE 300MG TABLET PO SCH ×2 (08:29→21:48)
[2022-01-10] MEDS: OLANZAPINE 5MG TABLET PO SCH ×2 (08:29→17:56)
[2022-01-10] MEDS: FLUOXETINE HCL 10 MG CAPSULE PO SCH (08:29)
[2022-01-10] MEDS: CEFTRIAXONE 1,000 MG in DEXTROSE 5% WATER 50 ML IV SCH (14:16)
[2022-01-10 15:56] LABS: EOSINOPHILS % 13.4 % (0.0-5.0); HEMATOCRIT. 24.8 % (36.0-48.0); HEMOGLOBIN. 8.3 g/dL (12.0-16.0); LYMPHOCYTES % 13.8 % (20.0-50.0); MEAN CORPUSCULAR HEMOGLOBIN 31.3 pg (28.0-32.0); MEAN PLATELET VOLUME 9.8 fl (7.4-10.4); MONOCYTES % 6.3 % (2.0-8.0); NEUTROPHILS % 65.5 % (40.0-76.0); PLATELET 215 x1000/uL (130-400); RED BLOOD CELL COUNT 2.66 mill/uL (4.2-5.4); RED CELL DISTRIBUTION WIDTH 14.5 % (11.6-14.6)
[2022-01-11] VITALS (11 sets, daily range): BP systolic 101–137; BP diastolic 50–98
[2022-01-11 06:13] LABS: BASOPHILS % 0.6 % (0.0-2.0); EOSINOPHILS % 4.6 % (0.0-5.0); HEMATOCRIT. 23.9 % (36.0-48.0); HEMOGLOBIN. 8.2 g/dL (12.0-16.0); LYMPHOCYTES % 13.5 % (20.0-50.0); MEAN CORPUSCULAR HEMOGLOBIN 31.6 pg (28.0-32.0); MEAN CORPUSCULAR VOLUME 91.6 fL (81.0-99.0); MONOCYTES % 8.8 % (2.0-8.0); NEUTROPHILS % 72.5 % (40.0-76.0); PLATELET 230 x1000/uL (130-400); RED BLOOD CELL COUNT 2.61 mill/uL (4.2-5.4); RED CELL DISTRIBUTION WIDTH 14.6 % (11.6-14.6)
[2022-01-11] MEDS: OLANZAPINE 5MG TABLET PO SCH (08:53)
[2022-01-11] MEDS: FLUOXETINE HCL 10 MG CAPSULE PO SCH (08:53)
[2022-01-11] MEDS: OXCARBAZEPINE 300MG TABLET PO SCH ×2 (08:54→21:19)
[2022-01-11] MEDS: CLONAZEPAM 0.5MG TABLET PO SCH ×2 (08:54→18:08)
[2022-01-11] MEDS ORDERED: IPRATROPIUM/ALBUTEROL 0.5-3(2.5)MG/3ML NEB HHN PRN (13:15)
[2022-01-11] MEDS: CEFTRIAXONE 1,000 MG in DEXTROSE 5% WATER 50 ML IV SCH (14:43)
[2022-01-11] MEDS: OLANZAPINE 2.5MG TABLET PO SCH (18:07)
[2022-01-12 00:01] VITALS: BP 104/53
[2022-01-12 04:00] VITALS: BP 114/58
[2022-01-12 07:31] LABS: BASOPHILS % 0.5 % (0.0-2.0); EOSINOPHILS % 14.7 % (0.0-5.0); HEMATOCRIT. 23.4 % (36.0-48.0); LYMPHOCYTES % 23.2 % (20.0-50.0); MEAN CORPUSCULAR HEMOGLOBIN 31.3 pg (28.0-32.0); MEAN CORPUSCULAR VOLUME 91.8 fL (81.0-99.0); MEAN PLATELET VOLUME 10.3 fl (7.4-10.4); MONOCYTES % 9.5 % (2.0-8.0); NEUTROPHILS % 52.1 % (40.0-76.0); PLATELET 195 x1000/uL (130-400); RED BLOOD CELL COUNT 2.55 mill/uL (4.2-5.4); RED CELL DISTRIBUTION WIDTH 14.4 % (11.6-14.6)
[2022-01-12 08:00] VITALS: BP 135/52
[2022-01-12] MEDS: CLONAZEPAM 0.5MG TABLET PO SCH ×2 (08:46→18:06)
[2022-01-12] MEDS: OLANZAPINE 2.5MG TABLET PO SCH ×2 (08:46→18:06)
[2022-01-12] MEDS: OXCARBAZEPINE 300MG TABLET PO SCH (08:46)
[2022-01-12] MEDS ORDERED: FLUOXETINE HCL 20MG CAPSULE PO SCH (09:00)
[2022-01-12] MEDS ORDERED: POTASSIUM CHLORIDE 20MEQ TABLET SR PO NR (11:45)
[2022-01-12 12:00] VITALS: BP 126/63
[2022-01-12] MEDS: CEFTRIAXONE 1,000 MG in DEXTROSE 5% WATER 50 ML IV SCH (15:15)
[2022-01-12 16:00] VITALS: BP 120/69
[2022-01-12 18:47] VITALS: BP 133/90
== END 2022-01-12 20:05 | DRG 70 ==
LOC: ER 17:50 → EDBEDREQTM 19:38 → EDBEDREQSVC 19:38 → EDBEDREQ 19:38 → MICUSO 01-07 00:16 → 3WST 01-07 03:15
PROVIDERS: ADMIT Hospitalist; ATTEND Hospitalist
PROC: 5A1D70Z Performance of Urinary Filtration, Intermittent, Less than 6 Hours Per Day (ICD-10-PCS; principal; 2022-01-07)
PROC: 5A1D70Z Performance of Urinary Filtration, Intermittent, Less than 6 Hours Per Day (ICD-10-PCS; 2022-01-11)
DX: G93.41 Metabolic encephalopathy (principal); I50.33 Acute on chronic diastolic (congestive) heart failure; N18.6 End stage renal disease; E46 Unspecified protein-calorie malnutrition; N39.0 Urinary tract infection, site not specified; N17.9 Acute kidney failure, unspecified; I13.2 Hypertensive heart and chronic kidney disease with heart failure and with stage 5 chronic kidney disease, or end stage renal disease; E87.0 Hyperosmolality and hypernatremia; E87.5 Hyperkalemia; D63.1 Anemia in chronic kidney disease; E11.22 Type 2 diabetes mellitus with diabetic chronic kidney disease; E11.65 Type 2 diabetes mellitus with hyperglycemia; E78.00 Pure hypercholesterolemia, unspecified; E86.1 Hypovolemia; E87.6 Hypokalemia; F20.9 Schizophrenia, unspecified; J44.9 Chronic obstructive pulmonary disease, unspecified; R62.7 Adult failure to thrive; E78.5 Hyperlipidemia, unspecified; Z99.2 Dependence on renal dialysis; Z91.15 Patient's noncompliance with renal dialysis; Z93.1 Gastrostomy status; Z68.25 Body mass index [BMI] 25.0-25.9, adult; Z78.1 Physical restraint status
CPT/HCPCS: 36415; 71045; 80048; 80053; 81003; 83880; 83930; 84484; 85025; 86705; 86709; 86803; 87340; 93005; 99285; A6261; J0696; J2060; J7060

== ENCOUNTER 2022-05-24 13:24 | Emergency (ER) | payer MEDICARE, MEDICAID ==
[~2022-05-24] VITALS: Ht 157.5 cm; Wt 55.0 kg
[2022-05-24] MEDS ORDERED: LEVETIRACETAM 1000MG PREMIX 100 ML IV ONE (13:45)
[2022-05-24 15:08] LABS: BASOPHILS % 0.6 % (0.0-2.0); EOSINOPHILS % 0.9 % (0.0-5.0); HEMATOCRIT. 38.1 % (36.0-48.0); HEMOGLOBIN. 12.3 g/dL (12.0-16.0); LYMPHOCYTES % 10.5 % (20.0-50.0); MEAN CORPUSCULAR HEMOGLOBIN 31.7 pg (28.0-32.0); MEAN PLATELET VOLUME 7.7 fl (7.4-10.4); MONOCYTES % 7.3 % (2.0-8.0); NEUTROPHILS % 80.7 % (40.0-76.0); PLATELET 391 x1000/uL (130-400); RED BLOOD CELL COUNT 3.88 mill/uL (4.2-5.4); RED CELL DISTRIBUTION WIDTH 13.7 % (11.6-14.6)
[2022-05-24 15:30] LABS: CHLORIDE 107 mEq/L (98-107)
[2022-05-24 17:24] LABS: CLARITY URINE CLEAR (CLEAR); COLOR URINE YELLOW (YELLOW); KETONES URINE NEGATIVE (NEGATIVE); LEUKOCYTE ESTERASE URINE 2+ (NEGATIVE); NITRITE URINE NEGATIVE (NEGATIVE); OCCULT BLOOD URINE 2+ (NEGATIVE); PH URINE 7.5 (4.5-8.0); PROTEIN URINE 1+ (NEGATIVE); SPECIFIC GRAVITY URINE 1.017 (1.005-1.030); UROBILINOGEN URINE 0.2 E.U./dL (0.2-1.0)
[2022-05-24 17:45] VITALS: BP 143/89
[2022-05-24] MEDS ORDERED: CIPR500S3 MT (18:17)
== END 2022-05-25 11:30 | disposition still patient (30) ==
LOC: ER 13:24
DX: G40.909 Epilepsy, unspecified, not intractable, without status epilepticus (principal); N39.0 Urinary tract infection, site not specified; I12.0 Hypertensive chronic kidney disease with stage 5 chronic kidney disease or end stage renal disease; E11.22 Type 2 diabetes mellitus with diabetic chronic kidney disease; N18.6 End stage renal disease; Z99.2 Dependence on renal dialysis; Z79.84 Long term (current) use of oral hypoglycemic drugs; Z79.899 Other long term (current) drug therapy; Z93.1 Gastrostomy status
CPT/HCPCS: 36415; 70450; 71045; 80053; 81003; 85025; 96365; 99285; J1953

== ENCOUNTER 2022-07-15 11:21 | Inpatient (IN) | payer MEDICARE, MEDICAID ==
[~2022-07-15] VITALS: Ht 167.6 cm; Wt 74.6 kg
[~2022-07-15 11:21] MED LIST changes: +CIPR500S3 MT
[2022-07-15 13:39] LABS: CLARITY URINE CLEAR (CLEAR); COLOR URINE YELLOW (YELLOW); KETONES URINE NEGATIVE (NEGATIVE); LEUKOCYTE ESTERASE URINE 1+ (NEGATIVE); NITRITE URINE NEGATIVE (NEGATIVE); OCCULT BLOOD URINE NEGATIVE (NEGATIVE); PROTEIN URINE NEGATIVE (NEGATIVE); SPECIFIC GRAVITY URINE 1.018 (1.005-1.030); UROBILINOGEN URINE 0.2 E.U./dL (0.2-1.0)
[2022-07-15 13:45] LABS: BASOPHILS % 0.7 % (0.0-2.0); EOSINOPHILS % 11.3 % (0.0-5.0); HEMATOCRIT. 33.3 % (36.0-48.0); HEMOGLOBIN. 11.2 g/dL (12.0-16.0); LYMPHOCYTES % 21.7 % (20.0-50.0); MEAN CORPUSCULAR HEMOGLOBIN 32.9 pg (28.0-32.0); MEAN CORPUSCULAR VOLUME 97.8 fL (81.0-99.0); MEAN PLATELET VOLUME 7.8 fl (7.4-10.4); MONOCYTES % 10.8 % (2.0-8.0); NEUTROPHILS % 55.5 % (40.0-76.0); PLATELET 405 x1000/uL (130-400); RED CELL DISTRIBUTION WIDTH 13.9 % (11.6-14.6)
[2022-07-15 13:48] LABS: CHLORIDE 108 mEq/L (98-107)
[2022-07-15 13:56] LABS: ETHANOL BLOOD < 10 mg/dL
[2022-07-15 14:16] LABS: *AMPHETAMINES SCREEN URINE NEGATIVE (NEGATIVE); *BARBITURATES SCREEN URINE NEGATIVE (NEGATIVE); *BENZODIAZEPINES SCREEN URINE NEGATIVE (NEGATIVE); *COCAINE SCREEN URINE NEGATIVE (NEGATIVE); CANNABINOID URINE SCREEN NEGATIVE (NEGATIVE); METHADONE URINE SCREEN NEGATIVE (NEGATIVE); OPIATES URINE SCREEN NEGATIVE (NEGATIVE); PHENCYCLIDINE URINE SCREEN NEGATIVE (NEGATIVE)
[2022-07-15] MEDS ORDERED: ONDANSETRON HCL 4MG/2ML INJ IV PRN (15:30)
[2022-07-15] MEDS ORDERED: ACETAMINOPHEN 325MG TABLET PO PRN (15:30)
[2022-07-15] MEDS ORDERED: IPRATROPIUM/ALBUTEROL 0.5-3(2.5)MG/3ML NEB HHN PRN (15:30)
[2022-07-15] MEDS: SODIUM CHLORIDE 0.9% 1,000 ML IV SCH ×2 (16:00→21:55)
[2022-07-15] MEDS ORDERED: LORAZEPAM 2MG/ML CPJ IV NR (16:30)
[2022-07-15] MEDS: LEVETIRACETAM 500MG PREMIX 100 ML IV SCH ×2 (16:31→23:00)
[2022-07-15] MEDS: DIPHENHYDRAMINE 50MG/ML VIAL IV PRN (21:55)
[2022-07-15] MEDS: LORAZEPAM 2MG/ML CPJ IV PRN (21:55)
[2022-07-15 22:00] VITALS: BP 120/80
[2022-07-16] VITALS: BP 136/68
[2022-07-16] MEDS: LEVETIRACETAM 500MG PREMIX 100 ML IV SCH ×3 (00:51→20:27)
[2022-07-16] MEDS: LORAZEPAM 2MG/ML CPJ IV PRN (03:01)
[2022-07-16] MEDS: DIPHENHYDRAMINE 50MG/ML VIAL IV PRN ×2 (03:01→20:28)
[2022-07-16 04:00] VITALS: BP 149/92
[2022-07-16] MEDS: SODIUM CHLORIDE 0.9% 1,000 ML IV SCH ×2 (05:14→20:27)
[2022-07-16 07:57] LABS: BASOPHILS % 0.8 % (0.0-2.0); EOSINOPHILS % 11.7 % (0.0-5.0); HEMATOCRIT. 32.2 % (36.0-48.0); HEMOGLOBIN. 11.1 g/dL (12.0-16.0); LYMPHOCYTES % 12.8 % (20.0-50.0); MEAN CORPUSCULAR HEMOGLOBIN 33.1 pg (28.0-32.0); MEAN CORPUSCULAR VOLUME 95.9 fL (81.0-99.0); MEAN PLATELET VOLUME 7.4 fl (7.4-10.4); MONOCYTES % 10.3 % (2.0-8.0); NEUTROPHILS % 64.4 % (40.0-76.0); PLATELET 365 x1000/uL (130-400); RED BLOOD CELL COUNT 3.36 mill/uL (4.2-5.4); RED CELL DISTRIBUTION WIDTH 13.1 % (11.6-14.6)
[2022-07-16 08:00] VITALS: BP 112/61
[2022-07-16 08:26] LABS: CHLORIDE 115 mEq/L (98-107)
[2022-07-16 12:00] VITALS: BP 123/69
[2022-07-16 16:00] VITALS: BP 149/59
[2022-07-16 20:00] VITALS: BP 166/68
[2022-07-16] MEDS: CLONIDINE 0.1MG TABLET PO PRN (20:27)
[2022-07-17] VITALS (7 sets, daily range): BP systolic 152–166; BP diastolic 57–86
[2022-07-17] MEDS ORDERED: HALOPERIDOL LACTATE 5MG/ML VIAL IM PRN (06:00)
[2022-07-17] MEDS: LEVETIRACETAM 500MG PREMIX 100 ML IV SCH (09:30)
[2022-07-17] MEDS ORDERED: RISPERIDONE 0.5MG TABLET PO SCH (10:30)
[2022-07-17] MEDS: CLONIDINE 0.1MG TABLET PO PRN (16:44)
== END 2022-07-17 18:30 | DRG 101 ==
LOC: ER 11:21 → 7WST 13:22 → EDBEDREQTM 13:27 → EDBEDREQ 13:27 → ENRESERV 19:19
PROVIDERS: ADMIT Internal Medicine; ATTEND Internal Medicine
DX: G40.909 Epilepsy, unspecified, not intractable, without status epilepticus (principal); E11.9 Type 2 diabetes mellitus without complications; J44.9 Chronic obstructive pulmonary disease, unspecified; I10 Essential (primary) hypertension; F20.9 Schizophrenia, unspecified; R45.1 Restlessness and agitation; Z78.1 Physical restraint status; Z79.899 Other long term (current) drug therapy
CPT/HCPCS: 36415; 80053; 80305; 80320; 81003; 85025; 93970; 99285; C1893; J1200; J1630; J1953; J2060; G0480

== ENCOUNTER 2023-02-06 21:53 | Emergency (ER) | payer MEDICARE, MEDICAID ==
[~2023-02-06] VITALS: Ht 160 cm; Wt 54.5 kg
[2023-02-06 21:56] VITALS: O2SAT 97
[2023-02-06] MEDS ORDERED: LEVETIRACETAM 1000MG PREMIX 100 ML IV ONE (23:00)
[2023-02-06 23:34] LABS: BASOPHILS % 0.6 % (0.0-2.0); EOSINOPHILS % 14.7 % (0.0-5.0); HEMATOCRIT. 34.4 % (36.0-48.0); HEMOGLOBIN. 11.3 g/dL (12.0-16.0); LYMPHOCYTES % 16.1 % (20.0-50.0); MEAN CORPUSCULAR HEMOGLOBIN 32.5 pg (28.0-32.0); MEAN CORPUSCULAR HGB CONC 32.7 g/dL (31.0-37.0); MEAN CORPUSCULAR VOLUME 99.2 fL (81.0-99.0); MEAN PLATELET VOLUME 6.9 fl (7.4-10.4); MONOCYTES % 9.6 % (2.0-8.0); PLATELET 399 x1000/uL (130-400); RED BLOOD CELL COUNT 3.47 mill/uL (4.2-5.4); WHITE BLOOD COUNT 10.9 x1000/uL (4.5-11.0)
[2023-02-06 23:48] LABS: ALANINE AMINOTRANSFERASE 11 IU/L (10-49); ALBUMIN 3.7 g/dL (3.2-4.8); ASPARTATE AMINOTRANSFERASE 13 IU/L (<34); BILIRUBIN TOTAL 0.2 mg/dL (0.1-1.0); CALCIUM 9.5 mg/dL (8.7-10.4); CARBON DIOXIDE 26 mEq/L (21-32); CHLORIDE 105 mEq/L (98-107); CREATININE 0.8 mg/dL (0.6-1.0); GLUCOSE 98 mg/dL (70-105); POTASSIUM 4.2 mEq/L (3.5-5.1); PROTEIN TOTAL 6.7 g/dL (6.0-8.3); SODIUM 137 mEq/L (136-145); UREA NITROGEN BLOOD 18 mg/dL (9-23)
[2023-02-07] MEDS ORDERED: LEVETIRACETAM 1000MG PREMIX 100 ML IV NR (01:15)
[2023-02-07 10:00] VITALS: BP 100/50; PULSE 66; RESP 24; TEMP 98.4
== END 2023-02-07 11:36 ==
LOC: ER 21:53
DX: R56.9 Unspecified convulsions (principal); J44.9 Chronic obstructive pulmonary disease, unspecified; E11.9 Type 2 diabetes mellitus without complications; I10 Essential (primary) hypertension; F20.9 Schizophrenia, unspecified
CPT/HCPCS: 99285; 71045; 80053; 82962; 85025; 36415; 93005; J1953

== ENCOUNTER 2024-04-09 21:47 | Inpatient (IN) | payer MEDICARE, MEDICAID ==
[~2024-04-09] VITALS: Ht 167.6 cm; Wt 70.0 kg
[~2024-04-09 21:47] MED LIST changes: -CIPR500S3 MT; -CLON0.5T PO; +CLON0.5T2 PO; +LACO100T2 PO; +LAM25 PO; +NITR100C11 PO
[2024-04-09 23:40] LABS: BASOPHILS % 0.6 % (0.0-2.0); EOSINOPHILS % 0.7 % (0.0-5.0); HEMATOCRIT. 37.6 % (36.0-48.0); HEMOGLOBIN. 12.4 g/dL (12.0-16.0); LYMPHOCYTES % 9.7 % (20.0-50.0); MEAN CORPUSCULAR HEMOGLOBIN 32.8 pg (28.0-32.0); MEAN CORPUSCULAR HGB CONC 32.9 g/dL (31.0-37.0); MEAN CORPUSCULAR VOLUME 99.6 fL (81.0-99.0); MEAN PLATELET VOLUME 7.3 fl (7.4-10.4); MONOCYTES % 10.3 % (2.0-8.0); NEUTROPHILS % 78.7 % (40.0-76.0); PLATELET 288 x1000/uL (130-400); RED BLOOD CELL COUNT 3.78 mill/uL (4.2-5.4); RED CELL DISTRIBUTION WIDTH 13.2 % (11.6-14.6); WHITE BLOOD COUNT 10.4 x1000/uL (4.5-11.0)
[2024-04-09 23:47] LABS: INR 0.9; PARTIAL THROMBOPLASTIN TIME 26.9 sec (23.4-31.0); PROTHROMBIN TIME 10.6 sec (9.6-11.0)
[2024-04-09 23:52] LABS: CHLORIDE 103 mEq/L (98-107); POTASSIUM 3.7 mEq/L (3.5-5.1); SODIUM 141 mEq/L (136-145)
[2024-04-09 23:53] LABS: CARBON DIOXIDE 32 mEq/L (21-32)
[2024-04-09 23:54] LABS: CALCIUM 9.6 mg/dL (8.7-10.4)
[2024-04-09 23:58] LABS: CREATININE 0.8 mg/dL (0.6-1.0); GLUCOSE 123 mg/dL (70-105); UREA NITROGEN BLOOD 14 mg/dL (9-23)
[2024-04-09 23:59] LABS: TROPONIN I HIGH SENSITIVITY 5 ng/L (3.0-34)
[2024-04-10] LABS: ETHANOL BLOOD < 10 mg/dL (<10)
[2024-04-10] MEDS: LORAZEPAM 2MG/ML INJ IV PRN (03:18)
[2024-04-10] MEDS ORDERED: ONDANSETRON HCL 4MG/2ML INJ IV PRN (12:30)
[2024-04-10] MEDS ORDERED: LORAZEPAM 2MG/ML INJ IV PRN (12:30)
[2024-04-10] MEDS ORDERED: ACETAMINOPHEN 325MG TABLET PO PRN (12:30)
[2024-04-10] MEDS: LEVETIRACETAM 500MG PREMIX 100 ML IV SCH (13:30)
[2024-04-10 14:30] VITALS: BP 133/67; PULSE 76; RESP 20; TEMP 36.1; O2SAT 95
[2024-04-10 15:14] VITALS: BP 133/67; PULSE 76; RESP 20; TEMP 36.1
[2024-04-10 16:00] VITALS: BP 142/72; PULSE 80; RESP 18; TEMP 36.4; O2SAT 95
[2024-04-10] MEDS: INFLUENZA VACCINE 05/PF 0.5 ML SYRINGE IM ONE (16:15)
[2024-04-10 20:00] VITALS: BP 162/73; PULSE 76; RESP 18; TEMP 37; O2SAT 98
[2024-04-10] MEDS: LACOSAMIDE 100MG TABLET PO SCH (21:42)
[2024-04-10] MEDS: ATORVASTATIN CALCIUM 20MG TABLET PO SCH (21:43)
[2024-04-10] MEDS: CLONAZEPAM 0.5MG TABLET PO NR (21:43)
[2024-04-10] MEDS: TOPIRAMATE 25MG TABLET PO SCH (21:48)
[2024-04-11] VITALS: BP 158/73; PULSE 69; RESP 18; TEMP 35.8; O2SAT 98
[2024-04-11 04:00] VITALS: BP 128/89; PULSE 76; RESP 17; TEMP 37; O2SAT 99
[2024-04-11 08:00] VITALS: BP 107/72; PULSE 68; RESP 17; TEMP 36.2; O2SAT 98
[2024-04-11] MEDS: LAMOTRIGINE 25MG TABLET PO SCH (09:11)
[2024-04-11] MEDS: OLANZAPINE 2.5MG TABLET PO SCH (09:11)
[2024-04-11 12:00] VITALS: BP 143/70; PULSE 80; RESP 19; TEMP 36.2; O2SAT 95
[2024-04-11 16:00] VITALS: BP 133/72; PULSE 74; RESP 19; TEMP 36.2; O2SAT 95
[2024-04-11] MEDS: LEVETIRACETAM 500MG TABLET PO SCH (16:00)
[2024-04-11 20:00] VITALS: BP 138/69; PULSE 93; RESP 19; TEMP 36.6; O2SAT 95
[2024-04-11] MEDS: LEVETIRACETAM 750 MG in SODIUM CHLORIDE 0.9% 100 ML IV SCH (21:00)
[2024-04-11] MEDS: LEVETIRACETAM 250MG TABLET PO SCH (22:32)
[2024-04-12] VITALS: BP 134/77; PULSE 83; RESP 19; TEMP 36.6; O2SAT 95
[2024-04-12 04:00] VITALS: BP 119/59; PULSE 79; RESP 19; TEMP 36.6; O2SAT 98
[2024-04-12 08:00] VITALS: BP 137/64; PULSE 60; RESP 17; TEMP 36.2; O2SAT 97
[2024-04-12 12:00] VITALS: BP_SYST 130; BP_SYST 138; BP_DIAS 62; BP_DIAS 69; PULSE 66; PULSE 75; RESP 17; RESP 18; TEMP 35.3; TEMP 36.4; O2SAT 95
[2024-04-12 16:00] VITALS: BP 114/56; PULSE 68; RESP 18; TEMP 36.5; O2SAT 95
[2024-04-12 16:36] VITALS: BP 151/76; PULSE 81; TEMP 97.6; O2SAT 95
== END 2024-04-12 17:25 | DRG 101 ==
LOC: ER 21:47 → 7EST 04-10 00:20
PROVIDERS: ADMIT Internal Medicine; ATTEND Internal Medicine
DX: G40.909 Epilepsy, unspecified, not intractable, without status epilepticus (principal); I13.0 Hypertensive heart and chronic kidney disease with heart failure and stage 1 through stage 4 chronic kidney disease, or unspecified chronic kidney disease; F20.9 Schizophrenia, unspecified; E11.22 Type 2 diabetes mellitus with diabetic chronic kidney disease; I50.9 Heart failure, unspecified; J44.9 Chronic obstructive pulmonary disease, unspecified; N18.9 Chronic kidney disease, unspecified; F41.9 Anxiety disorder, unspecified; Z79.899 Other long term (current) drug therapy
CPT/HCPCS: 36415; 71045; 80048; 80320; 80339; 83880; 84484; 85025; 93005; 99285; C1893; J1953; J2060; J7050; G0480

== ENCOUNTER 2024-12-25 22:27 | Inpatient (IN) | payer MEDICARE, MEDICAID ==
[~2024-12-25] VITALS: Ht 165.1 cm; Wt 79.8 kg
[~2024-12-25 22:27] MED LIST changes: +AMLO5TAB88 PO; -ATOR20TA PO; +ATOR20TA65 PO; +CITA10TA88 PO; +CLON0.1T PO; +ENOX40DI8 SUBCUT; -ESCI10TA PO; +FAMO20TA8 PO; +HYDR25TA78 PO; +INSU100I53 SUBCUT; -KEPP500 PO; -LAM25 PO; -NITR100C11 PO; +NYST15CR49 TP; +OXCA300T4 PO; -OXCA600T5 PO
[2024-12-25 22:34] VITALS: O2SAT 100
[2024-12-25] MEDS ORDERED: AMLO5TAB88 PO (22:51)
[2024-12-25] MEDS ORDERED: DEXTL MT (22:51)
[2024-12-25] MEDS ORDERED: TOPUD MT (22:51)
[2024-12-25 23:36] LABS: BASOPHILS % 0.7 % (0.0-2.0); EOSINOPHILS % 6.1 % (0.0-5.0); HEMATOCRIT. 36.0 % (36.0-48.0); HEMOGLOBIN. 11.9 g/dL (12.0-16.0); LYMPHOCYTES % 16.7 % (20.0-50.0); MEAN PLATELET VOLUME 7.0 fl (7.4-10.4); MONOCYTES % 10.7 % (2.0-8.0); NEUTROPHILS % 65.8 % (40.0-76.0); PLATELET 326 x1000/uL (130-400); RED BLOOD CELL COUNT 3.75 mill/uL (4.2-5.4); RED CELL DISTRIBUTION WIDTH 13.1 % (11.6-14.6)
[2024-12-25 23:50] LABS: INR 1.0
[2024-12-26 00:10] LABS: CREATININE 0.8 mg/dL (0.6-1.0); TROPONIN I HIGH SENSITIVITY 4 ng/L (3.0-34)
[2024-12-26 00:11] LABS: UREA NITROGEN BLOOD 19 mg/dL (9-23)
[2024-12-26 00:12] LABS: ASPARTATE AMINOTRANSFERASE 20 IU/L (<34)
[2024-12-26 00:13] LABS: BILIRUBIN DIRECT < 0.1 mg/dL (<=3.0); BILIRUBIN TOTAL 0.3 mg/dL (0.1-1.0); PROTEIN TOTAL 7.2 g/dL (6.0-8.3)
[2024-12-26] MEDS: LEVETIRACETAM 1000MG PREMIX 100 ML IV ONE (01:31)
[2024-12-26 02:13] LABS: TROPONIN I HIGH SENSITIVITY 4 ng/L (3.0-34)
[2024-12-26] MEDS: IOHEXOL-350 100 ML BOTTLE ONE (02:14)
[2024-12-26 03:05] LABS: CLARITY URINE CLEAR (CLEAR); COLOR URINE YELLOW (YELLOW); GLUCOSE URINE NEGATIVE (NEGATIVE); KETONES URINE NEGATIVE (NEGATIVE); LEUKOCYTE ESTERASE URINE NEGATIVE (NEGATIVE); NITRITE URINE NEGATIVE (NEGATIVE); OCCULT BLOOD URINE 2+ (NEGATIVE); PH URINE 6.0 (4.5-8.0); PROTEIN URINE 1+ (NEGATIVE); SPECIFIC GRAVITY URINE 1.023 (1.005-1.030); UROBILINOGEN URINE 0.2 E.U./dL (0.2-1.0)
[2024-12-26 03:42] VITALS: BP 157/53; PULSE 57; RESP 16; TEMP 36.3068
[2024-12-26 03:57] LABS: SQUAMOUS EPITHELIAL CELL URINE FEW /lpf (RARE/1+); WBC URINE 0-2 /hpf (0-2)
[2024-12-26 03:58] LABS: BACTERIA URINE NONE SEEN
[2024-12-26] MEDS ORDERED: DEXTROSE 50% WATER 50ML SYRINGE IV PRN (06:45)
[2024-12-26] MEDS: INSULIN LISPRO 100 UNITS/ML SUBCUT SCH (07:15)
[2024-12-26] MEDS: BLOOD SUGAR DIAGNOSTIC STRIP TEST SCH (07:42)
[2024-12-26 08:00] VITALS: BP 126/99; PULSE 61; RESP 16; TEMP 36.3; O2SAT 93
[2024-12-26] MEDS ORDERED: IPRATROPIUM/ALBUTEROL 0.5-3(2.5)MG/3ML NEB HHN PRN (08:15)
[2024-12-26] MEDS ORDERED: ONDANSETRON HCL 4MG/2ML INJ IV PRN (08:15)
[2024-12-26] MEDS ORDERED: ACETAMINOPHEN 325MG TABLET PO PRN ×2 (08:15)
[2024-12-26] MEDS ORDERED: LORAZEPAM 2MG/ML UD SYRINGE IV PRN (09:00)
[2024-12-26] MEDS: ASPIRIN 81MG TABLET PO SCH (09:00)
[2024-12-26] MEDS: FAMOTIDINE 20MG/2ML VIAL IV SCH (09:48)
[2024-12-26] MEDS: LEVETIRACETAM 500MG PREMIX 100 ML IV SCH (09:48)
[2024-12-26] MEDS: ENOXAPARIN 40MG/0.4ML SYR SUBCUT SCH (09:49)
[2024-12-26 12:00] VITALS: BP 119/59; PULSE 56; RESP 16; TEMP 36.4; O2SAT 97
[2024-12-26 12:46] LABS: *AMPHETAMINES SCREEN URINE NEGATIVE (NEGATIVE); *BARBITURATES SCREEN URINE NEGATIVE (NEGATIVE); *BENZODIAZEPINES SCREEN URINE NEGATIVE (NEGATIVE); *COCAINE SCREEN URINE NEGATIVE (NEGATIVE); CANNABINOID URINE SCREEN NEGATIVE (NEGATIVE); ECSTASY MDMA SCREEN URINE NEGATIVE (NEGATIVE); METHADONE URINE SCREEN NEGATIVE (NEGATIVE); OPIATES URINE SCREEN NEGATIVE (NEGATIVE); PHENCYCLIDINE URINE SCREEN NEGATIVE (NEGATIVE)
[2024-12-26 20:00] VITALS: BP 132/51; PULSE 80; RESP 16; TEMP 36.6; O2SAT 96
[2024-12-26] MEDS: ATORVASTATIN CALCIUM 40MG TABLET PO SCH (21:00)
[2024-12-27 04:00] VITALS: BP 157/98; PULSE 62; RESP 16; TEMP 36.3; O2SAT 97
[2024-12-27 08:00] VITALS: BP 153/62; PULSE 75; RESP 16; TEMP 36.8; O2SAT 97
[2024-12-27] MEDS: LEVETIRACETAM 500MG TABLET PO SCH (08:59)
[2024-12-27 12:00] VITALS: BP 120/60; PULSE 77; RESP 17; TEMP 36.5; O2SAT 97
[2024-12-27 16:00] VITALS: BP 140/62; PULSE 75; RESP 16; TEMP 36.8; O2SAT 95
[2024-12-27 20:00] VITALS: BP 169/69; PULSE 74; RESP 20; TEMP 36.5; O2SAT 98
[2024-12-27] MEDS: CLONIDINE 0.1MG TABLET PO PRN (20:34)
[2024-12-28] VITALS: BP 153/60; PULSE 56; RESP 18; TEMP 36.8; O2SAT 97
[2024-12-28 04:00] VITALS: BP 133/39; PULSE 66; RESP 19; TEMP 36.6; O2SAT 98
[2024-12-28 08:00] VITALS: BP 114/43; PULSE 62; RESP 18; TEMP 36.4; O2SAT 98
[2024-12-28 12:00] VITALS: BP 126/67; PULSE 58; RESP 18; TEMP 36.3; O2SAT 97
[2024-12-28 16:00] VITALS: BP 128/47; PULSE 73; RESP 18; TEMP 36.4; O2SAT 98
[2024-12-28 20:00] VITALS: BP 136/55; PULSE 66; RESP 15; TEMP 36.7; O2SAT 95
[2024-12-29 08:00] VITALS: BP 136/55; PULSE 66; RESP 15; TEMP 36.7; O2SAT 95
[2024-12-29 12:00] VITALS: BP 157/60; PULSE 62; RESP 18; TEMP 36.7; O2SAT 100
[2024-12-29 16:00] VITALS: BP 146/54; PULSE 62; RESP 19; TEMP 36.7; O2SAT 97
[2024-12-29 20:00] VITALS: BP 145/95; PULSE 64; RESP 17; TEMP 36.7; O2SAT 96
[2024-12-30] VITALS: BP 173/77; PULSE 88; RESP 17; TEMP 36.8; O2SAT 98
[2024-12-30 04:00] VITALS: BP 153/100; PULSE 76; RESP 16; TEMP 36.3; O2SAT 97
[2024-12-30 08:00] VITALS: RESP 16
[2024-12-30] MEDS: DOCUSATE SODIUM 100MG CAPSULE PO PRN (09:22)
[2024-12-30 12:00] VITALS: BP 162/60; PULSE 60; RESP 16; TEMP 36.4; O2SAT 99
[2024-12-30 16:00] VITALS: BP 119/57; PULSE 73; RESP 16; TEMP 36.2
[2024-12-30 20:00] VITALS: BP 120/43; PULSE 60; RESP 18; TEMP 36.1; O2SAT 97
[2024-12-31] VITALS: BP 116/50; PULSE 62; RESP 18; TEMP 36.2; O2SAT 91; O2SAT 98
[2024-12-31 04:00] VITALS: BP 147/46; PULSE 55; RESP 18; TEMP 35.9; O2SAT 97
[2024-12-31 08:00] VITALS: BP 119/55; PULSE 71; RESP 18; TEMP 35.7; O2SAT 96
[2024-12-31 16:00] VITALS: BP 145/60; PULSE 70; RESP 20; TEMP 36.1; O2SAT 97
[2024-12-31 20:00] VITALS: BP 138/50; PULSE 67; RESP 17; TEMP 36.7; O2SAT 96
[2025-01-01 08:00] VITALS: BP 134/69; PULSE 82; RESP 18; TEMP 36.3; O2SAT 93
[2025-01-01 12:00] VITALS: BP 137/68; PULSE 79; RESP 18; TEMP 36.3; O2SAT 98
[2025-01-01 16:00] VITALS: BP 156/70; PULSE 65; RESP 15; TEMP 36.4; O2SAT 73; O2SAT 95
[2025-01-01 20:00] VITALS: BP 152/71; PULSE 76; RESP 20; TEMP 36.8; O2SAT 96
[2025-01-02] VITALS: BP 137/72; PULSE 74; RESP 20; TEMP 37.2; O2SAT 97
[2025-01-02 04:00] VITALS: BP 121/58; PULSE 72; RESP 20; TEMP 37.1; O2SAT 98
[2025-01-02 08:00] VITALS: BP 132/43; PULSE 74; RESP 16; TEMP 36.2; O2SAT 97
[2025-01-02 12:00] VITALS: BP 147/64; PULSE 85; RESP 16; TEMP 36.8; O2SAT 98
[2025-01-02 16:00] VITALS: BP 168/72; PULSE 73; RESP 16; TEMP 36.6; O2SAT 96
[2025-01-02 20:00] VITALS: BP 160/69; PULSE 62; RESP 18; TEMP 35.6; O2SAT 92
[2025-01-03] VITALS: BP 150/73; PULSE 70; RESP 18; TEMP 36.2; O2SAT 96
[2025-01-03 04:00] VITALS: BP 150/73; PULSE 70; RESP 18; TEMP 36.2; O2SAT 96
[2025-01-03 08:00] VITALS: BP 124/66; PULSE 73; RESP 16; TEMP 36.4; O2SAT 96
[2025-01-03 12:00] VITALS: BP 138/68; PULSE 63; RESP 18; TEMP 36.6; O2SAT 99
[2025-01-03 16:00] VITALS: BP 156/70; PULSE 75; RESP 18; TEMP 36.9; O2SAT 98
[2025-01-03 20:00] VITALS: BP 153/69; PULSE 79; RESP 18; TEMP 36.6; O2SAT 96
[2025-01-04] VITALS: BP 150/82; PULSE 75; RESP 17; TEMP 36.9; O2SAT 97
[2025-01-04 04:00] VITALS: BP 138/101; PULSE 72; RESP 16; TEMP 36.4; O2SAT 96
[2025-01-04 08:00] VITALS: BP 111/62; PULSE 86; RESP 16; TEMP 36.2; O2SAT 98
[2025-01-04 12:00] VITALS: BP 119/56; PULSE 80; RESP 19; TEMP 36.2; O2SAT 97
[2025-01-04 16:00] VITALS: BP 145/69; PULSE 66; RESP 19; TEMP 36.5; O2SAT 98
[2025-01-04 20:00] VITALS: BP 116/40; PULSE 70; RESP 18; TEMP 36.6; O2SAT 99
[2025-01-05 07:19] LABS: CREATININE 1.0 mg/dL (0.6-1.0); UREA NITROGEN BLOOD 22.0 mg/dL (9-23)
[2025-01-05 07:29] LABS: BASOPHILS % 0.8 % (0.0-2.0); EOSINOPHILS % 6.7 % (0.0-5.0); HEMATOCRIT. 43.4 % (36.0-48.0); HEMOGLOBIN. 14.1 g/dL (12.0-16.0); LYMPHOCYTES % 13.8 % (20.0-50.0); MEAN PLATELET VOLUME 7.8 fl (7.4-10.4); MONOCYTES % 10.0 % (2.0-8.0); NEUTROPHILS % 68.7 % (40.0-76.0); PLATELET 350 x1000/uL (130-400); RED BLOOD CELL COUNT 4.51 mill/uL (4.2-5.4); RED CELL DISTRIBUTION WIDTH 13.2 % (11.6-14.6)
[2025-01-05] MEDS: LORAZEPAM 2MG/ML UD SYRINGE IV PRN (11:30)
[2025-01-05 12:00] VITALS: BP 112/54; PULSE 105; RESP 20; O2SAT 99
[2025-01-05] MEDS ORDERED: LEVETIRACETAM 1,000MG in NACL 100ML PREMIX IV SCH (12:30)
[2025-01-05] MEDS: LEVETIRACETAM 1000MG PREMIX 100 ML IV SCH (12:43)
[2025-01-05 16:00] VITALS: BP 153/84; PULSE 87; RESP 18; TEMP 36.3; O2SAT 99
[2025-01-05 20:00] VITALS: BP 150/94; PULSE 85; RESP 19; TEMP 36.3; O2SAT 96
[2025-01-06] VITALS: BP 143/59; PULSE 59; RESP 17; TEMP 35.6; O2SAT 98
[2025-01-06] MEDS ORDERED: LORAZEPAM 0.5MG TABLET PO PRN (02:00)
[2025-01-06 04:00] VITALS: BP 148/74; PULSE 69; RESP 18; TEMP 36.3; O2SAT 94
[2025-01-06 08:00] VITALS: BP 119/58; PULSE 93; RESP 16; TEMP 36.2; O2SAT 95
[2025-01-06 16:00] VITALS: BP 135/71; PULSE 84; RESP 16; TEMP 36.5; O2SAT 97
[2025-01-07 08:00] VITALS: BP 141/59; PULSE 73; RESP 16; TEMP 36.2; O2SAT 95
[2025-01-07] MEDS: LEVETIRACETAM 500MG TABLET PO SCH (08:08)
[2025-01-07 12:00] VITALS: BP 139/80; PULSE 64; RESP 16; TEMP 36.3; O2SAT 91
[2025-01-07 16:00] VITALS: BP 126/85; PULSE 80; RESP 16; TEMP 36.4; O2SAT 91
[2025-01-07 20:00] VITALS: BP 126/63; PULSE 72; RESP 17; TEMP 36.1; O2SAT 96
[2025-01-08] VITALS: BP 121/64; PULSE 76; RESP 16; TEMP 36.5; O2SAT 96
[2025-01-08 04:00] VITALS: BP 146/50; PULSE 63; RESP 17; TEMP 36.4; O2SAT 97
[2025-01-08 08:00] VITALS: BP 142/58; PULSE 73; RESP 16; TEMP 36.2; O2SAT 99
[2025-01-08 12:00] VITALS: BP 128/55; PULSE 62; RESP 16; TEMP 36.3; O2SAT 98
[2025-01-08 16:00] VITALS: BP 128/55; PULSE 71; RESP 16; TEMP 36.3; O2SAT 96
[2025-01-08 20:00] VITALS: BP 148/83; PULSE 74; RESP 17; TEMP 36.6; O2SAT 93
[2025-01-09] VITALS: BP 138/65; PULSE 76; RESP 17; TEMP 36.3; O2SAT 94
[2025-01-09 04:00] VITALS: BP 117/87; PULSE 69; RESP 17; TEMP 36.3; O2SAT 96
[2025-01-09 08:00] VITALS: BP 124/46; PULSE 58; RESP 19; TEMP 35; O2SAT 98
[2025-01-09 16:00] VITALS: BP 126/56; PULSE 95; RESP 16; TEMP 35; O2SAT 95
[2025-01-09 20:00] VITALS: BP 135/64; PULSE 65; RESP 18; TEMP 36.3; O2SAT 95
[2025-01-10] VITALS: BP 109/40; PULSE 68; RESP 17; TEMP 35.9; O2SAT 96
[2025-01-10 08:00] VITALS: BP 159/69; PULSE 83; RESP 18; TEMP 36.4; O2SAT 96
[2025-01-10 20:00] VITALS: BP 136/72; PULSE 69; RESP 19; TEMP 36.2; O2SAT 97
[2025-01-11 08:00] VITALS: BP 134/71; PULSE 81; RESP 16; TEMP 36.7; O2SAT 95
[2025-01-11] MEDS ORDERED: LORAZEPAM 2MG/ML UD SYRINGE IV PRN (10:00)
[2025-01-11 16:48] VITALS: BP 141/77; PULSE 58; RESP 16; TEMP 97.8
== END 2025-01-11 15:55 | DRG 101 ==
LOC: ER 22:27 → 5WST 12-26 01:11 → EDBEDREQTM 12-26 01:19 → EDBEDREQDT 12-26 01:19 → EDBEDREQ 12-26 01:19 → ENRESERV 12-26 02:12
PROVIDERS: ADMIT Internal Medicine; ATTEND Internal Medicine
DX: G40.909 Epilepsy, unspecified, not intractable, without status epilepticus (principal); E11.9 Type 2 diabetes mellitus without complications; I50.9 Heart failure, unspecified; I11.0 Hypertensive heart disease with heart failure; J44.9 Chronic obstructive pulmonary disease, unspecified; R29.714 NIHSS score 14; F41.9 Anxiety disorder, unspecified; E78.5 Hyperlipidemia, unspecified; R31.9 Hematuria, unspecified; D72.829 Elevated white blood cell count, unspecified; Z79.899 Other long term (current) drug therapy
CPT/HCPCS: 36415; 70496; 70498; 71045; 80048; 80076; 80305; 81003; 82962; 83735; 84484; 85025; 92610; 93005; 93970; 97110; 97162; 97166; 99285; A4606; J1308; J1650; J1815; J1953; J2060; Q9967